=== PATIENT | female | born 1975 | race Caucasian/White ===

== ENCOUNTER 2020-10-28 15:13 | Emergency (ER) | payer OTHER, SELFPAY ==
[2020-10-28 15:25] VITALS: BP 122/82; PULSE 97; RESP 16; TEMP 36.8; O2SAT 98
--- NOTE | 2020-10-28 15:47 | ED.GENADULT ---
HPI - General Adult General Chief complaint: Upper Respiratory Infection Stated complaint: sob Time Seen by Provider: 10/28/20 15:47 Source: patient and RN notes reviewed Mode of arrival: ambulatory Limitations: no limitations History of Present Illness HPI narrative: 44-year-old female presents with complaints of dry cough, upper respiratory infections symptoms, and intermittent chest congestion, and wheezing for the past 7 days. ?Nessa reports an increasing cough with wheezing over the past 48 hours. ?No treatment, out of routine asthma medications. ?Rhinorrhea and nasal congestion. ?Denies sore throat. ?No high fevers, drooling, neck or throat swelling. ?No chest pain or shortness of breath. ?Denies nausea, vomiting, and abdominal pain. ?Tolerating liquids well. ?Remains active. ?The patient reports she has not been diagnosed with COVID-19. ?The patient reports she is not waiting for the results of a COVID-19 lab test. ?The patient reports she does not have chills, weakness, fatigue, or myalgia. The patient reports she does not have any loss of taste or diarrhea. Denies recent traveling. Denies concerns for COVID-19 or exposures. At this time, the patient is not suspected of having COVID-19. Some parts of this dictation were generated by voice recognition software and may contain typographical and/or grammatical inaccuracies. Related Data Home Medications Medication Instructions Recorded Confirmed albuterol sulfate 2 puff INHALATION Q4H PRN 10/28/20 10/28/20 aripiprazole 5 mg PO DAILY 10/28/20 10/28/20 budesonide-formoterol [Symbicort] 2 puff INHALATION BID 10/28/20 10/28/20 gabapentin 300 mg PO TID 10/28/20 10/28/20 montelukast 10 mg PO DAILY 10/28/20 10/28/20 naltrexone 50 mg PO DAILY 10/28/20 10/28/20 quetiapine 100 mg PO DAILY 10/28/20 10/28/20 sertraline 10 mg PO DAILY 10/28/20 10/28/20 Allergies Allergy/AdvReac Type Severity Reaction Status Date / Time buspirone Allergy Mild Unknown Verified 10/28/20 15:45 ziprasidone Allergy Mild Unknown Verified 10/28/20 15:45 tramadol Allergy Seizure Verified 10/28/20 15:45 HAIR DYE Allergy Mild Unknown Uncoded 10/28/20 15:45 flu shot Allergy Unknown Unknown Uncoded 10/28/20 15:45 ALBERTO Allergy Unknown Unknown Uncoded 10/28/20 15:45 Review of Systems Review of Systems: Narrative: CONSTITUTIONAL: Denies fever, sweats, chills, fatigue. EYES: Denies visual changes, redness, discharge. ENT: Complains of rhinorrhea, congestion. Denies sore throat, otalgia. CARDIOVASCULAR: Denies chest pain, palpitations, edema. RESPIRATORY: Denies dyspnea. Complains of dry cough, chest congestion, wheezing. GASTROINTESTINAL: Denies abdominal pain, nausea, vomiting, diarrhea. GENITOURINARY: Denies dysuria, hematuria, abnormal discharge. SKIN: Denies rash or itching. MUSCULOSKELETAL: Denies acute back pain, joint pain, or myalgia. NEUROLOGIC: Denies numbness or focal weakness. PSYCHIATRIC: Denies anxiety or depression. [facility] Past Medical History Medical History (Updated 10/29/20 @ 00:01 by Gilberto Ryder) Anxiety Asthma Diabetes Hypertension Surgical History Surgical History (Updated 10/28/20 @ 16:09 by DEVON Augustine) History of surgery on upper extremity History of tonsillectomy Family History Family History (Updated 10/28/20 @ 15:55 by DEVON Augustine) Father Hypertension Mother Hypertension Social History Social History (Updated 10/28/20 @ 16:11 by DEVON Augustine) Smoking status: Former smoker Tobacco type: cigarettes Second hand tobacco smoke exposure: Yes Alcohol intake: current Substance use: former Last use: 12/21/2010 Living arrangements: with family Occupation/Education: occupation Gender identity (if verbalized by the patient): Female Comments At time of signature, agree with the nurse past medical, surgical, social, and family history. There is no relevant family history pertinent to the presenting compl
--- NOTE | 2020-10-28 15:50 | PC.NURSE ---
Pt reports being out of all presription meds for awhile because she needs to make an appointment with her primary. Only prescription currently has available is albuterol inhaler.
[2020-10-28] MEDS: ALBUTEROL SULFATE NEB 2.5 MG/3 ML INH INHALATION (16:08)
[2020-10-28] MEDS: IPRATROPIUM BR 0.02% INH SOLN 0.5 MG/2.5 ML VIAL INHALATION (16:09)
[2020-10-28] MEDS: predniSONE 20 MG TABLET 60 MG PO (16:09)
[2020-10-28 16:41] VITALS: PULSE 85; RESP 16; O2SAT 100
== END 2020-10-28 16:44 | disposition home or self-care (01) ==
PROVIDERS: Emergency Provider Nurse Practitioner Family; PCP Internal Medicine
DX: J45.901 Unspecified asthma with (acute) exacerbation (principal); Z87.891 Personal history of nicotine dependence; F41.9 Anxiety disorder, unspecified; E11.9 Type 2 diabetes mellitus without complications; I10 Essential (primary) hypertension
CPT/HCPCS: 94640; 99213; G0463; J7512